=== PATIENT | male | born 1980 | race Caucasian/White ===

== ENCOUNTER → 2017-03-04 | Outpatient (REF) | payer OTHER ==
[2017-03-04 17:10] LABS: BASO % 0.5 % (0.0-1.0); EOS # 0.1 K/mm3 (0.0-0.50); EOS % 2.2 % (0.0-3.0); LARGE UNSTAINED CELL # 0.1 K/mm3 (0.0-0.4); LYMPH # 0.9 K/mm3 (1.5-4.5); LYMPH % 18.4 % (24.0-44.0); MEAN CORPUSCULAR HGB CONC 34.9 g/dl (32.0-36.5); MONO # 0.2 K/mm3 (0.0-0.8); MONO % 4.5 % (0.0-5.0); NEUTROPHILS # 3.6 K/mm3 (1.8-7.7); NEUTROPHILS % 73.4 % (36.0-66.0); PLATELET COUNT, AUTOMATED 237 k/mm3 (150-450); RED CELL DISTRIBUTION WIDTH 12.3 % (11.5-14.5); WHITE BLOOD COUNT 4.9 K/mm3 (4.0-10.0)
[2017-03-04 18:33] LABS: ALBUMIN 4.4 GM/DL (3.2-5.2); ALBUMIN/GLOBULIN RATIO 1.57 (1.00-1.93); ALKALINE PHOSPHATASE 67 U/L (45-117); ALT/SGPT 37 U/L (12-78); ANION GAP 8 MEQ/L (8-16); AST/SGOT 27 U/L (15-37); BILIRUBIN,TOTAL 0.5 MG/DL (0.2-1.0); BLOOD UREA NITROGEN 10 MG/DL (7-18); CALCIUM LEVEL 8.7 MG/DL (8.5-10.1); CARBON DIOXIDE LEVEL 28 MEQ/L (21-32); CHLORIDE LEVEL 102 MEQ/L (98-107); CREATININE FOR GFR 1.08 MG/DL (0.70-1.30); GLOMERULAR FILTRATION RATE > 60.0 (>60); GLUCOSE, FASTING 77 MG/DL (70-105); POTASSIUM SERUM 3.9 MEQ/L (3.5-5.1); SODIUM LEVEL 138 MEQ/L (136-145); TOTAL PROTEIN 7.2 GM/DL (6.4-8.2)
[2017-03-04 18:47] LABS: THYROXINE (T4) 9.5 UG/DL (4.5-12.0)
[2017-03-04 19:01] LABS: ERYTHROCYTE SEDIMENTATION RATE 2 mm/hr (0-15)
== END ==
LOC: M SFHCCLAY 10:41
PROVIDERS: ATTEND Family Medicine
DX: R53.83 Other fatigue (principal); R68.83 Chills (without fever); M79.1 Myalgia

== ENCOUNTER → 2018-08-01 | Outpatient (REF) | payer OTHER ==
[2018-08-01 17:43] LABS: CHOLESTEROL LEVEL 169 MG/DL (<200); CHOLESTEROL RISK RATIO 4.023 (<5); HDL CHOLESTEROL 42 MG/DL (>40); LDL CHOLESTEROL 103 MG/DL (<100); NON-HDL-C 127 MG/DL; TRIGLYCERIDES LEVEL 119 MG/DL (<150)
== END ==
LOC: M SFHCCLAY 13:21
DX: Z13.220 Encounter for screening for lipoid disorders (principal)

== ENCOUNTER → 2021-02-02 | Outpatient (REF) | payer OTHER ==
[2021-02-02 12:47] LABS: CHOLESTEROL RISK RATIO 5.139 (<5)
== END ==
LOC: M SFHCCLAY 07:55
PROVIDERS: ATTEND Family Medicine
DX: Z00.00 Encounter for general adult medical examination without abnormal findings (principal); Z13.220 Encounter for screening for lipoid disorders

== ENCOUNTER 2024-02-25 17:39 | Emergency (ER) | payer MEDICAID, OTHER ==
[2024-02-25] MEDS ORDERED: CLAR5TAB11 PO (17:54)
[2024-02-25] MEDS ORDERED: ALBU8.5H INH (17:55)
[2024-02-25] MEDS ORDERED: FLON1SPR NARES (17:55)
[2024-02-25] MEDS: BOOSTRIX VACCINE (TETANUS/DIPHTH/ACEL. PERTUSSIS) 0.5ML SYR IM.IMMUN ONE (18:01)
[2024-02-25] MEDS: LIDOCAINE W/EPINEPHRINE 1% 20ML VIAL SC ONE (18:02)
[2024-02-25] MEDS: ceFAZolin SOD 2 GM in IV 1 EA IV ONE (18:55)
[2024-02-25] MEDS ORDERED: HYDR-3713 PO (19:08)
[2024-02-25] MEDS ORDERED: CEPH500T PO (19:08)
[2024-02-25] MEDS: NORCO, ANEXSIA 5/325MG TABLET (HYDROcodone/ACETAMINOPHEN) PO ONE (19:52)
[2024-02-25 20:02] VITALS: BP 129/74; TEMP 98.3; O2SAT 99
== END 2024-02-25 20:05 | disposition home or self-care (01) ==
LOC: EDBD 17:39 → M ED 17:39
DX: S68.614A Complete traumatic transphalangeal amputation of right ring finger, initial encounter (principal); Y92.019 Unspecified place in single-family (private) house as the place of occurrence of the external cause; Y93.9 Activity, unspecified; Y99.9 Unspecified external cause status; F10.10 Alcohol abuse, uncomplicated; Z88.2 Allergy status to sulfonamides; Z88.0 Allergy status to penicillin; Z79.1 Long term (current) use of non-steroidal anti-inflammatories (NSAID); Z79.51 Long term (current) use of inhaled steroids; Z79.2 Long term (current) use of antibiotics; Z79.899 Other long term (current) drug therapy; Z23 Encounter for immunization
CPT/HCPCS: 73140; 90471; 90715; 96372; 96374; 99284; J0665; J0690

== ENCOUNTER 2024-02-29 13:20 | Day surgery (SDC) | payer MEDICAID, OTHER ==
[~2024-02-29] VITALS: Ht 180.3 cm; Wt 83.8 kg
[~2024-02-29 13:20] MED LIST: ALBU8.5H INH; CEPH500T PO; CLAR5TAB11 PO; FLON1SPR NARES; HYDR-3713 PO
[2024-02-29] MEDS ORDERED: BACITRACIN OINTMENT 30GM TUBE As Ordered ONE (17:43)
[2024-02-29] MEDS ORDERED: ONDANSETRON 4MG 2ML VIAL As Ordered ONE (17:46)
[2024-02-29] MEDS ORDERED: propofoL 200 MG/20 ML VIAL As Ordered ONE (17:46)
[2024-02-29] MEDS ORDERED: MIDAZOLAM INJ 2MG/2ML VIAL As Ordered ONE (17:46)
[2024-02-29] MEDS ORDERED: LIDOCAINE 2% 100MG/5ML SDV (FOR ANES.) As Ordered ONE (17:46)
[2024-02-29] MEDS ORDERED: KETOROLAC 60MG 2ML VIAL As Ordered ONE (17:46)
[2024-02-29] MEDS ORDERED: fentaNYL 100 MCG/2 ML INJECTION As Ordered ONE (17:46)
[2024-02-29] MEDS: ceFAZolin 2 GM/D5W 50 ML IV BAG As Ordered ONE (18:13)
[2024-02-29] MEDS: LIDOCAINE 1% MDV 20ML VIAL As Ordered ONE (18:15)
[2024-02-29] MEDS ORDERED: GLYCOPYRROLATE INJ 0.2 MG/ML 2 ML VIAL As Ordered ONE (18:25)
[2024-02-29] MEDS ORDERED: HYDROMORPHONE HCL 0.5 MG/ 0.5 ML SYRINGE IV PRN (18:40)
[2024-02-29] MEDS ORDERED: ONDANSETRON 4MG 2ML VIAL IV PRN (18:40)
[2024-02-29] MEDS ORDERED: fentaNYL 100 MCG/2 ML INJECTION IV PRN (18:40)
[2024-02-29] MEDS ORDERED: oxyCODONE 5MG TAB PO PRN (18:40)
[2024-02-29] MEDS ORDERED: LR 1,000 ML IV SCH (18:40)
[2024-02-29 19:25] VITALS: BP 144/85; TEMP 97.4; O2SAT 99
== END 2024-02-29 19:50 | disposition home or self-care (01) ==
LOC: M SDC 13:20
PROVIDERS: ATTEND Student in an Organized Health Care Education/Training Program
DX: S68.624A Partial traumatic transphalangeal amputation of right ring finger, initial encounter (principal); W30.9XXA Contact with unspecified agricultural machinery, initial encounter; Y92.73 Farm field as the place of occurrence of the external cause; Y93.H9 Activity, other involving exterior property and land maintenance, building and construction; Y99.8 Other external cause status; J45.909 Unspecified asthma, uncomplicated; Z88.0 Allergy status to penicillin; Z88.2 Allergy status to sulfonamides; Z79.899 Other long term (current) drug therapy; Z79.2 Long term (current) use of antibiotics
CPT/HCPCS: 26951; 76000; J0665; J0690; J1100; J1885; J2250; J2405; J3010

== ENCOUNTER → 2024-04-11 | Outpatient (CLI) | payer OTHER | LOC: M SOG 07:50 | PROVIDERS: ATTEND Physician Assistant | DX: S68.624D Partial traumatic transphalangeal amputation of right ring finger, subsequent encounter (principal) ==

== ENCOUNTER → 2024-05-16 | Outpatient (CLI) | payer OTHER | LOC: M SOG 07:49 | PROVIDERS: ATTEND Physician Assistant | DX: S68.624D Partial traumatic transphalangeal amputation of right ring finger, subsequent encounter (principal) ==